=== PATIENT | female | born 1985 | race Caucasian/White ===

== ENCOUNTER 2016-11-26 15:26 | Emergency (ER) | payer OTHER ==
--- NOTE | 2016-11-26 16:43 | RAD ---
Indication: Mid lumbar spine pain post fall November 04. Comparison: No relevant prior exams available on the [facility] for comparison. Technique: AP, lateral, and oblique views lumbar sacral spine. Report: Alignment is anatomic. No cortical disruption or trabecular impaction to indicate a vertebral body fracture. Oblique views without evidence for spondylolysis. Preserved disc spaces. Unremarkable soft tissue contours. IMPRESSION: Negative exam.
[2016-11-26 17:48] VITALS: BP 118/72
[2016-11-26] MEDS ORDERED: Ketorolac INJ* 60 MG/2 ML VIAL IM ONE (17:53)
--- NOTE | 2016-11-26 18:00 | UC ---
Back Pain HPI - HPI Summary HPI Summary: 31 y/o female presents to the urgent care c/o back pain since 11/04/2016. Pt reports she slipped and fell and injured her mid back while hiking on 11/04/2016. She went to ER and then has been managed by PCP and Rx Flexeril and Naproxen which symptoms improved. However she has finished her medication. She was evaluated by PT today and her pain was exacerbated. Pain now is 7/10 constant w/ o any radiation. Denies numbness, tingling, fecal or urinary incontinence, saddle anesthesia, SOB, chest pain, N/V/D. - History of Current Complaint Hx Obtained From: Patient Hx Last Menstrual Period: Continuous pill therefore does not have regular cycle ?: No Onset/Duration: Sudden Onset, Lasting Weeks, Still Present Timing: Constant Severity Initially: Severe Severity Currently: Moderate Pain Intensity: 7 - w/ movement Pain Scale Used: 0-10 Numeric Back Pain: Is Discrete @ - Lower back pain Character: Sharp Aggravating: Movement Alleviating: Rest Associated Signs And Symptoms: Positive: Pain with Weight Bearing - Risk Factors AAA Risk Factors: Negative TAD Risk Factors: Negative Cauda Equina Risk Factors: Negative Epidural Abscess Risk Factors: Negative <Lianet Gonzales - Last Filed: 11/28/16 12:46> <Aubree Fonseca - Last Filed: 11/28/16 14:42> - History of Current Complaint Chief Complaint: UCBackPain Stated Complaint: BACK INJURY FROM FALL Time Seen by Provider: 11/26/16 17:33 - Allergies/Home Medications Allergies/Adverse Reactions: Allergies Allergy/AdvReac Type Severity Reaction Status Date / Time No Known Allergies Allergy Verified 11/26/16 15:32 Home Medications: Home Medications Bupropion XL* [Wellbutrin XL *] 300 mg PO DAILY 11/26/16 [History Confirmed ] Cyclobenzaprine TAB* [Flexeril 10 MG TAB*] 10 mg PO BID PRN 11/26/16 [History Confirmed 11/26/16] Methylphenidate TAB* [Ritalin TAB*] 10 mg PO BID 11/26/16 [History Confirmed ] PMH/Surg Hx/FS Hx/Imm Hx Previously Healthy: Yes Respiratory History: Asthma - Surgical History Surgical History: None - Family History Known Family History: Positive: Diabetes - Social History Occupation: Employed Full-time Lives: With Family Alcohol Use: Rare Substance Use Type: None Smoking Status (MU): Never Smoked Tobacco <Lianet Gonzales - Last Filed: 11/28/16 12:46> Review of Systems Constitutional: Negative Skin: Negative Eyes: Negative ENT: Negative Respiratory: Negative Cardiovascular: Negative Gastrointestinal: Negative Genitourinary: Negative Motor: Negative Neurovascular: Negative Musculoskeletal: Other: - Mid back pain Neurological: Negative Psychological: Negative All Other Systems Reviewed And Are Negative: Yes <Lianet Gonzales - Last Filed: 11/28/16 12:46> Physical Exam Triage Information Reviewed: Yes Appearance: Well-Appearing, No Pain Distress, Well-Nourished, Obese Vital Signs: Initial Vital Signs Temp 98.1 F 11/26/16 15:28 Pulse 101 11/26/16 15:28 Resp 16 11/26/16 15:28 BP 127/84 11/26/16 15:28 Pulse Ox 100 11/26/16 15:28 Vital Signs Reviewed: Yes Eye Exam: Normal Eyes: Positive: Conjunctiva Clear - PERRLA, EOMI, fundi grossly normal ENT Exam: Normal ENT: Positive: Normal ENT inspection, Hearing grossly normal, Pharynx normal, TMs normal Dental Exam: Normal Neck exam: Normal Neck: Positive: Supple, Nontender, No Lymphadenopathy Respiratory Exam: Normal Respiratory: Positive: Chest non-tender, Lungs clear, Normal breath sounds Cardiovascular Exam: Normal Cardiovascular: Positive: RRR, No Murmur, Pulses Normal, Brisk Capillary Refill Abdominal Exam: Normal Abdomen Description: Positive: Nontender, No Organomegaly, Soft. Negative: CVA Tenderness (R), CVA Tenderness (L) Bowel Sounds: Positive: Present Neurological Exam: Normal - BACK: Patient walked into the urgent care room with symmetric ambulation, No signs of limping, antalgic, able to bear weight. No signs of trauma, No masses palpated. Point tenderness at the level of T12-L1, No CVAT, no flank ecchymosis . No sacroiliac notch tenderness, No saddle anesthesia.ROM: limited flexion/ extension/ lateral bending and rotation due to pain, Straight Leg Raise: negative. Patellar reflexes: brisk, symmetric Muscle strength lower extremities. Dorsiflexion/ plantar flexion of ankles. Heel/ toe walk. Lower extremities: Femoral, popliteal, posterior tibial, and dorsalis pedis pulses WNL Psychological Exam: Normal Skin Exam: Normal <Lianet Gonzales - Last Filed: 11/28/16 12:46> Vital Signs: Initial Vital Signs Temp 98.1 F 11/26/16 15:28 Pulse 101 11/26/16 15:28 Resp 16 11/26/16 15:28 BP 127/84 11/26/16 15:28 Pulse Ox 100 11/26/16 15:28 <Aubree Fonseca - Last Filed: 11/28/16 14:42> Back Pain Course/Dx - Course Course Of Treatment: 31 y/o female presents to the urgent care c/o back pain since 11/04/2016. Pt reports she slipped and fell and injured her mid back while hiking on 11/04/2016. She went to ER and then has been managed by PCP and Rx Flexeril and Naproxen which symptoms improved. However she has finished her medication. She was evaluated by PT today and her pain was exacerbated. Pain now is 7/10 constant w/o any radiation. Denies numbness, tingling, fecal or urinary incontinence, saddle anesthesia, SOB, chest pain, N/V/D. Hx obtained. PE abnormal findings:BACK: Patient walked into the urgent care room with symmetric ambulation, No signs of limping, antalgic, able to bear weight. No signs of trauma, No masses palpated. Point tenderness at the level of T12-L1, No CVAT, no flank ecchymosis . No sacroiliac notch tenderness, No saddle anesthesia.ROM: limited flexion/ extension/ lateral bending and rotation due to pain, Straight Leg Raise: negative. Patellar reflexes: brisk, symmetric Muscle strength lower extremities. Dorsiflexion/ plantar flexion of ankles. Heel/ toe walk. Lower extremities: Femoral, popliteal, posterior tibial, and dorsalis pedis pulses WNL. Ptgiven Toradol IM inj by the nurse to allaeviate BACK: Patient walked into the urgent care room with symmetric ambulation, No signs of limping, antalgic, able to bear weight. No signs of trauma, No masses palpated. Point tenderness at the level of T12-L1, No CVAT, no flank ecchymosis . No sacroiliac notch tenderness, No saddle anesthesia.ROM: limited flexion/ extension/ lateral bending and rotation due to pain, Straight Leg Raise: negative. Patellar reflexes: brisk, symmetric Muscle strength lower extremities. Dorsiflexion/ plantar flexion of ankles. Heel/ toe walk. Lower extremities: Femoral, popliteal, posterior tibial, and dorsalis pedis pulses WNL. Lumbar spine X-ray ordered, Impression: negative. Pt D/C home with Rx of Flexeril, Medrol dose lam and Naproxen and f/u w/ PCP for further evaluation and treatment and to continue w/ PT sessions. - Differential Dx/Diagnosis Differential Diagnosis/HQI/PQRI: Cauda Equina Syndrome, Fracture, Herniated Disc , Renal Colic, Strain, Sprain Provider Diagnoses: 1-Acute back pain <Lianet Gonzales - Last Filed: 11/28/16 12:46> Discharge <Lianet Gonzales - Last Filed: 11/28/16 12:46> <Aubree Fonseca - Last Filed: 11/28/16 14:42> - Discharge Plan Condition: Stable Disposition: HOME Prescriptions: Cyclobenzaprine TAB* [Flexeril 10 MG TAB*] 10 mg PO TID PRN #21 tab PRN Reason: Spasms - Back Methylprednisolone [Medrol Dosepak 4 MG*] 4 mg PO .SEE LAM INSTRUCTION #1 lam Naproxen TAB* [Naprosyn 250 mg TAB*] 500 mg PO Q8H PRN #30 tab PRN Reason: Pain Patient Education Materials: Acute Low Back Pain (ED) Referrals: Erlinda Obrien DO [Primary Care Provider] - 2 Days Additional Instructions: Please take medications as instructed to alleviate pain. Apply ice on your mid back and rest, wear a back support and continue with the PT appointments. Please f/u with your PCP for further evaluation and treatment. Attestation Statement User Type: Provider - I was available for consult. This patient was seen by the RJ. The patient was not presented to, seen by, or examined by me. -Al <Aubree Fonseca - Last Filed: 11/28/16 14:42>
== END 2016-11-26 18:19 | disposition home or self-care (01) ==
LOC: UCEAST 15:26
DX: M54.9 Dorsalgia, unspecified (principal); J45.909 Unspecified asthma, uncomplicated; E66.9 Obesity, unspecified
CPT/HCPCS: 72110; 96372; 99212; G0463; J1885

== ENCOUNTER 2017-02-09 12:55 | Emergency (ER) | payer OTHER ==
[2017-02-09 13:26] VITALS: BP 124/67
--- NOTE | 2017-02-09 13:53 | UC ---
Abdominal Pain Female HPI - HPI Summary HPI Summary: Patient presents with complaints of one day onset abdominal pain, she states it is the upper abdomen and the pain radiates around to her back, with associated diarrhea. She states her symptoms got worse after she drank a cup of coffee yesterday and have been constant ever since. She denies any recent ravel, ill contacts, or antibiotic therapy. - History of Current Complaint Chief Complaint: UCAbdominalPain Stated Complaint: ABDOMINAL PAIN Time Seen by Provider: 02/09/17 13:37 Hx Obtained From: Patient Hx Last Menstrual Period: 01/10/17 Onset/Duration: Gradual Onset, Lasting Days Timing: Constant Severity Initially: Mild Severity Currently: Moderate Location: Diffuse, Discrete At: RUQ, Discrete At: LUQ, Epigastric Radiates to: Back, Flank Character: Sharp Aggravating Factor(s): Food Alleviating Factor(s): Nothing Associated Signs and Symptoms: Positive: Nausea, Diarrhea - Risk Factors Ectopic Risk Factor: Negative Ovarian Torsion Risk Factor: Negative Allergies/Adverse Reactions: Allergies Allergy/AdvReac Type Severity Reaction Status Date / Time No Known Allergies Allergy Verified 02/09/17 13:26 Home Medications: Home Medications Charcoal Activated [Activated Vegetable Charc] 2 tab PO ONCE PRN 02/09/17 [ History Confirmed 02/09/17] Diphenhydramine HCl 1 tab PO ONCE PRN 02/09/17 [History Confirmed 02/09/17] Fluticasone NASAL * [Flonase *] 1 spray NASAL DAILY PRN 02/09/17 [History Confirmed 02/09/17] Loratadine [Claritin 10 MG CAP] 1 tab PO DAILY 02/09/17 [History Confirmed 02/09] Naproxen TAB* [Naprosyn 250 mg TAB*] 500 mg PO Q4HR PRN 02/09/17 [History Confirmed 02/09/17] Norethindrone (Contraceptive) [Urmila] 1 tab PO DAILY 02/09/17 [History Confirmed 02/09/17] Ranitidine HCl (Nf) [Zantac] 1 tab PO DAILY PRN 02/09/17 [History Confirmed 12/19] PMH/Surg Hx/FS Hx/Imm Hx Previously Healthy: Yes - Surgical History Surgical History: None - Family History Known Family History: Positive: Diabetes - Social History Occupation: Employed Full-time Lives: Alone Alcohol Use: Rare Substance Use Type: None Smoking Status (MU): Never Smoked Tobacco - Immunization History Most Recent Influenza Vaccination: Not UTD Review of Systems Constitutional: Negative Skin: Negative Eyes: Negative ENT: Negative Respiratory: Negative Cardiovascular: Negative Gastrointestinal: Abdominal Pain, Diarrhea Genitourinary: Negative Motor: Negative Neurovascular: Negative Musculoskeletal: Negative Neurological: Negative Psychological: Negative All Other Systems Reviewed And Are Negative: Yes Physical Exam Triage Information Reviewed: Yes Appearance: Well-Appearing Vital Signs: Initial Vital Signs Temp 97.7 F 02/09/17 13:21 Pulse 70 02/09/17 13:21 Resp 18 02/09/17 13:21 BP 124/67 02/09/17 13:21 Pulse Ox 100 02/09/17 13:21 Vital Signs Reviewed: Yes Eye Exam: Normal ENT Exam: Normal Dental Exam: Normal Neck exam: Normal Neck: Positive: 1 Respiratory Exam: Normal Cardiovascular Exam: Normal Abdominal Exam: Normal Abdomen Description: Positive: Soft, Other: - RUQ/LUQ Epigastric Musculoskeletal Exam: Normal Neurological Exam: Normal Psychological Exam: Normal Skin Exam: Normal Abd Pain Female Course/Dx - Course Course Of Treatment: Patient was seen and evaluated. VSS. Nontoxic appearance. She was referred to the ER, for an abdominal pain evaluation. declined ambulance transfer. Report was called to [facility]. Patient was stable at the time of discharge. - Differential Dx/Diagnosis Differential Diagnosis: Other - abdominal pain Provider Diagnoses: abdominal pain Discharge - Discharge Plan Condition: Stable Disposition: [facility] Patient Education Materials: Abdominal Pain (ED) Referrals: Erlinda Obrien DO [Primary Care Provider] - Additional Instructions: Patient was instructed to go directly to [facility] emergency department.
== END 2017-02-09 13:50 ==
LOC: UCEAST 12:55
DX: R10.9 Unspecified abdominal pain (principal)
CPT/HCPCS: 81003; 84702; 99212; G0463

== ENCOUNTER 2017-02-09 14:15 | Emergency (ER) | payer OTHER ==
[2017-02-09] MEDS ORDERED: Ondansetron INJ* 2 MG/ML VIAL IV ONE (15:10)
[2017-02-09] MEDS ORDERED: NS 0.9% 1000 ML* 1,000 ML IV ONE (15:10)
[2017-02-09 15:48] LABS: Hematocrit 39 % (35-47); Hemoglobin 13.5 g/dl (12.0-16.0); Mean Corpuscular HGB Conc 34 g/dl (31-36); Mean Corpuscular Hemoglobin 30 pg (27-31); Mean Corpuscular Volume 88 fL (80-97); Mean Platelet Volume 7 um3 (7.4-10.4); Red Blood Count 4.48 10^6/ul (4.0-5.4); Red Cell Distribution Width 13 % (10.5-15); White Blood Count 10.3 10^3/ul (3.5-10.8)
--- NOTE | 2017-02-09 15:56 | RAD ---
HISTORY: Right upper quadrant tenderness COMPARISONS: None TECHNIQUE: Multiple transverse and longitudinal ultrasound images were obtained of the right upper quadrant of the abdomen using grayscale and color Doppler imaging. FINDINGS: LIVER: The liver is normal in shape, size, contour, and echogenicity. There are no focal parenchymal masses. There is normal hepatopedal flow of the portal vein on Doppler imaging. BILIARY TREE: There is no intrahepatic or extrahepatic biliary dilatation. The common duct measures 0.4 cm. GALLBLADDER: The gallbladder is well-visualized. There is no cholelithiasis, gallbladder wall thickening, pericholecystic fluid, or sonographic Bourne sign. PANCREAS: The head of the pancreas is unremarkable. The tail of the pancreas is not well visualized secondary to overlying bowel gas. RIGHT KIDNEY: The right kidney is normal in shape, size, contour, and echogenicity. There is no hydronephrosis or nephrolithiasis. The right kidney measures 11.8 x 5.8 x 4.7 cm. AORTA AND IVC: The aorta and IVC are unremarkable. FLUID: There are no pleural effusions. There is no free fluid within the hepatorenal recess. OTHER FINDINGS: None. IMPRESSION: NO ACUTE SONOGRAPHIC PATHOLOGY OF THE VISUALIZED PORTION OF THE ABDOMEN
[2017-02-09 16:00] LABS: Albumin 4.2 g/dL (3.2-5.2); BUN/Creatinine Ratio 12.8 (8-20); C Reactive Protein 4.16 mg/L (< 5.00); Calcium 9.6 mg/dL (8.6-10.3); EGFR African American 90.5 (>60); EGFR Non-African American 70.4 (>60); Globulin 3.2 g/dL (2-4); Potassium 3.8 mmol/L (3.5-5.0); Total Bilirubin 0.4 mg/dL (0.2-1.0); Total Protein 7.4 g/dL (6.4-8.9)
[2017-02-09] MEDS ORDERED: Lidocaine 2% VISCOUS* 15 ML UDC PO ONE (16:09)
[2017-02-09] MEDS ORDERED: Al Hydrox/Mg Hydrox/Simet LIQ* 30 ML UDC PO ONE (16:09)
[2017-02-09 16:50] VITALS: BP 127/82
== END 2017-02-09 16:47 | disposition home or self-care (01) ==
LOC: ED 14:15
DX: R10.9 Unspecified abdominal pain (principal)
CPT/HCPCS: 36415; 76705; 80053; 83605; 83690; 85025; 86140; 86618; 96374; 99283; A9270-GY; J2405

== ENCOUNTER 2017-02-17 08:27 | Emergency (ER) | payer OTHER ==
[2017-02-17] MEDS ORDERED: NS 0.9% 1000 ML* 1,000 ML IV ONE (09:36)
[2017-02-17] MEDS ORDERED: Famotidine IV* 10 MG/ML 2 ML (20 mg) IV SLOW PU ONE (09:37)
[2017-02-17] MEDS ORDERED: Al Hydrox/Mg Hydrox/Simet LIQ* 30 ML UDC PO ONE (10:14)
[2017-02-17] MEDS ORDERED: Lidocaine 2% VISCOUS* 15 ML UDC PO ONE (10:15)
[2017-02-17 11:07] VITALS: BP 130/65
--- NOTE | 2017-02-17 11:53 | RAD ---
CLINICAL HISTORY: 9 days of abdominal pain COMPARISON: None TECHNIQUE: Noncontrast CT examination of the abdomen and pelvis from the lung bases through the initial tuberosities. FINDINGS: VISUALIZED LUNG BASES: The visualized lung bases are grossly clear. There is no pleural effusion. ABDOMEN AND PELVIS: Evaluation of the solid organs and vasculature is limited without intravenous contrast. The liver, spleen, pancreas and adrenal glands are grossly normal in appearance. The gallbladder is normal. The kidneys are normal in appearance without focal mass, calcification or signs of hydronephrosis. Evaluation of the gastrointestinal tract is limited without oral contrast. The small and large bowel are not distended. The appendix is top normal diameter measuring just under 8 mm in width (coronal image 70). There is a focus of gas in the lumen and no definite periappendiceal inflammatory changes. There is potentially wall thickening involving the transverse colon measuring up to 9 mm in thickness (axial image 39). There is no gross retroperitoneal lymphadenopathy. There are innumerable mesenteric lymph nodes but none are pathologically dilated. In the left adnexa there is a 3.6 cm fluid density structure. The abdominal aorta and iliac arteries are normal in course and diameter. There are no sinister bone lesions. IMPRESSION: 1. Evaluation of the gastrointestinal tract is limited without oral contrast. There is questionable wall thickening involving the transverse colon in the presence of innumerable mesenteric lymph nodes, none of which are pathologically dilated. Please correlate to infectious or inflammatory colitis. 2. Fluid density structure in the left adnexa is most consistent with a dominant follicle in a woman of this age.
--- NOTE | 2017-02-17 12:23 | UC ---
Abdominal Pain Female HPI - HPI Summary HPI Summary: Patient presents to the clinic with persistent complaints of abdominal pain, nausea, vomiting, and diarrhea x 9 days. She states she was seen at the ER at [facility] 8 days ago, had blood work, and a gallbladder US and was discharged home. She thought she was getting better so she started to ear again yesterday. Last night she ate pasta and milk and once again her symptoms got much worse again. Last night she vomited four times, and has so many episodes of diarrhea she couldn't count them. She also reports that in general she does not feel well, she has muscle and joint pain, she states she feels like everything is "inflammed". She states that if her stomach isn't hurting everything else hurts. She denies any recent travel, ill contacts, fever, chills, chest pain, sob, cough, dysuria, hemturia or abnormal vaginal discharge or bleeding. - History of Current Complaint Chief Complaint: UCAbdominalPain Stated Complaint: ABDOMINAL PAIN, AND VOMITING Time Seen by Provider: 02/17/17 09:27 Hx Obtained From: Patient Hx Last Menstrual Period: 02/16/17 ?: No Onset/Duration: Gradual Onset, Lasting Days Timing: Constant Severity Initially: Moderate Severity Currently: Moderate Location: Diffuse - through the mid-abdominal region Radiates: No Character: Cramping, Sharp Aggravating Factor(s): Food Alleviating Factor(s): Vomiting Associated Signs and Symptoms: Positive: Nausea, Vomiting, Diarrhea Allergies/Adverse Reactions: Allergies Allergy/AdvReac Type Severity Reaction Status Date / Time No Known Allergies Allergy Verified 02/17/17 08:42 PMH/Surg Hx/FS Hx/Imm Hx Previously Healthy: Yes - Surgical History Surgical History: None - Family History Known Family History: Positive: Diabetes - Social History Occupation: Employed Full-time Lives: Alone Alcohol Use: Rare Substance Use Type: None Smoking Status (MU): Never Smoked Tobacco - Immunization History Most Recent Influenza Vaccination: Not UTD Review of Systems Constitutional: Negative Skin: Negative Eyes: Negative ENT: Negative Respiratory: Negative Cardiovascular: Negative Gastrointestinal: Abdominal Pain, Vomiting, Diarrhea, Nausea, Other - intolerance to food or drinks, cannot eat. Genitourinary: Negative Motor: Negative Neurovascular: Negative Musculoskeletal: Negative All Other Systems Reviewed And Are Negative: Yes Physical Exam Triage Information Reviewed: Yes Appearance: Ill-Appearing Vital Signs: Initial Vital Signs Temp 98.5 F 02/17/17 08:43 Pulse 85 02/17/17 08:43 Resp 16 02/17/17 08:43 BP 129/67 02/17/17 08:43 Pulse Ox 100 02/17/17 08:43 Vital Signs Reviewed: Yes Eye Exam: Normal ENT Exam: Normal Neck exam: Normal Respiratory Exam: Normal Cardiovascular Exam: Normal Abdomen Description: Positive: Other: - bowel sounds hypoactive x 4 quadrants, mild distension, tenderness on palpation through the mid-abominal region, without rebound, guarding, HSM, or CVAT. Skin Exam: Normal Abd Pain Female Course/Dx - Course Course Of Treatment: Patient presents with complaints of 8 days, abdominal pain , n/v/d. Ct abdomen and pelvis without contrast revealed transverse 9 mm colon wall thickening consistent with inflammatory or infectious processes, appendix dialated 8mm with no obvious periappendiceal inflammatory changes. She was given IV fluids, and reglan and no improvement. Stool cultures were obtained and are pending. She continues to be symptomatic and options were discussed I felt she should go to the ER for further testing and resusitation. - Differential Dx/Diagnosis Differential Diagnosis: Other - abdominal pain vomiting nausea diarrhea Provider Diagnoses: abdominal pain. vomiting. nausea. diarrrhea Discharge - Discharge Plan Condition: Stable Disposition: HOME Patient Education Materials: Acute Nausea and Vomiting (ED), Acute Diarrhea (ED ), Abdominal Pain (ED) Referrals: Colton Hall MD [Medical Doctor] - Erlinda Obrien DO [Primary Care Provider] - Additional Instructions: Go directly to the ER from here.
--- NOTE | 2017-02-18 15:46 | UC ---
Progress - Progress Note Progress Note: (-) SHIGA/C.DIFF.
--- NOTE | 2017-02-19 17:51 | ED ---
Progress - Progress Note Progress Note: (-) SHIGA/C.DIFF. 02/19/17 (-) SHIGA/CDIFF Course/Dx - Course Course Of Treatment: Patient presents with complaints of 8 days, abdominal pain , n/v/d. Ct abdomen and pelvis without contrast revealed transverse 9 mm colon wall thickening consistent with inflammatory or infectious processes, appendix dialated 8mm with no obvious periappendiceal inflammatory changes. She was given IV fluids, and reglan and no improvement. Stool cultures were obtained and are pending. She continues to be symptomatic and options were discussed I felt she should go to the ER for further testing and resusitation. - Diagnoses Provider Diagnoses: Diarrhea
== END 2017-02-17 12:30 | disposition home or self-care (01) ==
LOC: UCEAST 08:27
DX: R10.9 Unspecified abdominal pain (principal); R19.7 Diarrhea, unspecified; R11.2 Nausea with vomiting, unspecified
CPT/HCPCS: 74176; 81003; 84702; 87045; 87046; 87077; 87493; 87899; 96361; 96374; 99212; A9270-GY; G0463

== ENCOUNTER 2017-02-17 12:54 | Emergency (ER) | payer OTHER ==
[2017-02-17] MEDS ORDERED: Morphine INJ* 4 MG/ML 1 ML CARPUJECT IV ONE (15:57)
[2017-02-17] MEDS ORDERED: Ondansetron INJ* 2 MG/ML VIAL IV ONE (15:57)
[2017-02-17 16:40] LABS: Hematocrit 40 % (35-47); Hemoglobin 13.3 g/dl (12.0-16.0); Mean Corpuscular HGB Conc 34 g/dl (31-36); Mean Corpuscular Hemoglobin 30 pg (27-31); Mean Corpuscular Volume 89 fL (80-97); Mean Platelet Volume 7 um3 (7.4-10.4); Red Blood Count 4.47 10^6/ul (4.0-5.4); Red Cell Distribution Width 13 % (10.5-15); White Blood Count 12.2 10^3/ul (3.5-10.8)
[2017-02-17 17:04] LABS: Albumin 3.9 g/dL (3.2-5.2); BUN/Creatinine Ratio 5.8 (8-20); C Reactive Protein 4.92 mg/L (< 5.00); Calcium 9.2 mg/dL (8.6-10.3); EGFR African American 81.5 (>60); EGFR Non-African American 63.4 (>60); Globulin 3.2 g/dL (2-4); Magnesium 1.9 mg/dL (1.9-2.7); Potassium 3.6 mmol/L (3.5-5.0); Total Bilirubin 0.5 mg/dL (0.2-1.0); Total Protein 7.1 g/dL (6.4-8.9)
[2017-02-17] MEDS ORDERED: Iohexol 300* (CONTRAST) 10 ML SDV IV ONE (17:14)
--- NOTE | 2017-02-17 18:41 | RAD ---
Indication: Abdominal pain, colitis. Contrast: Administered 150.2 ml of OMNIPAQUE 300 mg/ml CT of the abdomen and pelvis was performed after oral or IV contrast administration. Coronal and sagittal reconstructed images were obtained. The lung bases demonstrate no pleural fluid, nodules or masses. Heart is of normal size without evidence of pericardial effusion. Liver is normal in size. No focal lesions or intrahepatic ductal dilatation is noted. The gallbladder demonstrates no calcified gallstones. No pericholecystic fluid or wall thickening is noted. The spleen is normal in size. The pancreas indicates no mass or pancreatic ductal dilatation. The common duct is not dilated. No adrenal lesions are noted. The kidneys demonstrate symmetric nephrograms without hydronephrosis in either kidney. No dilated loops of bowel are noted. The colon is filled with stool. CT of the pelvis demonstrates normal appendix. No dilated loops of bowel are noted. No focal wall thickening of the colon is noted. No free fluid is identified. The previously described wall thickening of the transverse colon is no longer present and may have been function of lack of oral contrast. There were multiple mesenteric lymph nodes noted. This is in the mesentery. These are nonspecific and are not enlarged.. There is suggestion of a left ovarian cyst measuring up to 4.8 cm for which follow-up is suggested. No hernias are noted. IMPRESSION: Left ovarian cyst measuring up to 4.8 cm. No free fluid is identified. No mucosal thickening of the colon is noted. No other masses or fluid collections are noted. Previously identified thickened mucosa of the colon likely due to nondistention. It is not present on current exam.
--- NOTE | 2017-02-17 19:24 | ED ---
Abdominal Pain/Female - HPI Summary HPI Summary: Patient presents from [facility] with mid abdominal pain x [address] without contrast performed at [facility] and showed possible colitis. She was sent here for further evaluation. She states she feels she is not emptying her stomach. She feels only OK when drinking water and if she stops drinking water, she feels midepigastric to umbilical pain. Food makes the pain worse. She has tried to only have a bland diet, and still not improving her symptoms. She notes to intermittent nausea with 1x vomit. Denies C/D. Denies fevers, sweats and chills. She denies chance of . Denies vaginal bleeding, but states she switched her control over a few months ago and so has had some intermittent spotting. - History of Current Complaint Chief Complaint: EDAbdPain Stated Complaint: ABD PAIN Time Seen by Provider: 02/17/17 15:03 Hx Obtained From: Patient Hx Last Menstrual Period: 02/16/17 ?: No Onset/Duration: Sudden Onset Timing: Constant Severity Initially: Moderate Severity Currently: Moderate Pain Intensity: 8 Pain Scale Used: 0-10 Numeric Location: Diffuse Radiates: No Character: Cramping Aggravating Factor(s): Food Alleviating Factor(s): Position Associated Signs and Symptoms: Positive: Nausea, Vomiting - Risk Factors Ectopic Risk Factor: Negative Ovarian Torsion Risk Factor: Reproductive Age Allergies/Adverse Reactions: Allergies Allergy/AdvReac Type Severity Reaction Status Date / Time No Known Allergies Allergy Verified 02/17/17 12:58 PMH/Surg Hx/FS Hx/Imm Hx Previously Healthy: Yes Endocrine/Hematology History: Denies: Hx Diabetes Cardiovascular History: Denies: Hx Hypertension Respiratory History: Reports: Hx Asthma - stress induced Denies: Hx Chronic Obstructive Pulmonary Disease (COPD) History: Denies: Hx Renal Disease - Immunization History Date of Tetanus Vaccine: 2016 Date of Influenza Vaccine: never Hx Pertussis Vaccination: No Immunizations Up to Date: Unable to Obtain/Confirm Infectious Disease History: No Infectious Disease History: Denies: Hx Hepatitis, Traveled Outside the [place] in Last 30 Days - Family History Known Family History: Positive: Diabetes - Social History Occupation: Employed Part-time Lives: With Family Alcohol Use: Rare Hx Substance Use: No Substance Use Type: Reports: None Hx Tobacco Use: No Smoking Status (MU): Never Smoked Tobacco Review of Systems Constitutional: Negative Eyes: Negative Respiratory: Negative Positive: Abdominal Pain, Vomiting, Nausea Genitourinary: Negative Positive: no symptoms reported, see HPI Musculoskeletal: Negative Neurological: Negative Psychological: Normal All Other Systems Reviewed And Are Negative: Yes Physical Exam Triage Information Reviewed: Yes Vital Signs On Initial Exam: Initial Vitals Temp Pulse Resp BP Pulse Ox 96.9 F 86 16 150/88 100 02/17/17 12:56 02/17/17 12:56 02/17/17 12:56 02/17/17 12:56 02/17/17 12:56 Vital Signs Reviewed: Yes Appearance: Positive: Well-Appearing, Well-Nourished Skin: Positive: Warm, Skin Color Reflects Adequate Perfusion Head/Face: Positive: Normal Head/Face Inspection Eyes: Positive: EOMI, TONY, Conjunctiva Clear Neck: Positive: Supple, No Lymphadenopathy Respiratory/Lung Sounds: Positive: Clear to Auscultation, Breath Sounds Present Abdomen Description: Positive: Other: - tenderness to the RLQ and epigastric pain. Diffusely tender on exam Musculoskeletal: Positive: Normal, Strength/ROM Intact Neurological: Positive: Speech Normal Psychiatric: Positive: Normal AVPU Assessment: Alert Diagnostics - Vital Signs Vital Signs Temp Pulse Resp BP Pulse Ox 02/17/17 16:07 14 02/17/17 12:56 96.9 F 86 16 150/88 100 - Laboratory Lab Results: Lab Results 02/17/17 02/17/17 02/17/17 Range/Units 16:31 16:31 16:31 WBC 12.2 H (3.5-10.8) 10^3/ul RBC 4.47 (4.0-5.4) 10^6/ul Hgb 13.3 (12.0-16.0) g/dl Hct 40 (35-47) % MCV 89 (80-97) fL MCH 30 (27-31) pg MCHC 34 (31-36) g/dl RDW 13 (10.5-15) % Plt Count 357 (150-450) 10^3/ul MPV 7 L (7.4-10.4) um3 Neut % (Auto) 58.0 (38-83) % Lymph % (Auto) 22.5 L (25-47) % [place] % (Auto) 6.7 (1-9) % Eos % (Auto) 12.0 H (0-6) % Baso % (Auto) 0.8 (0-2) % Absolute Neuts (auto) 7.1 (1.5-7.7) 10^3/ul Absolute Lymphs (auto) 2.8 (1.0-4.8) 10^3/ul Absolute Monos (auto) 0.8 (0-0.8) 10^3/ul Absolute Eos (auto) 1.5 H (0-0.6) 10^3/ul Absolute Basos (auto) 0.1 (0-0.2) 10^3/ul Absolute Nucleated RBC 0 10^3/ul Nucleated RBC % 0 Sodium 138 (133-145) mmol/L Potassium 3.6 (3.5-5.0) mmol/L Chloride 107 (101-111) mmol/L Carbon Dioxide 24 (22-32) mmol/L Anion Gap 7 (2-11) mmol/L BUN 6 (6-24) mg/dL Creatinine 1.03 H (0.51-0.95) mg/dL Est GFR ( Amer) 81.5 (>60) Est GFR (Non-Af Amer) 63.4 (>60) BUN/Creatinine Ratio 5.8 L (8-20) Glucose 88 (70-100) mg/dL Lactic Acid 0.8 (0.5-2.0) mmol/L Calcium 9.2 (8.6-10.3) mg/dL Magnesium 1.9 (1.9-2.7) mg/dL Total Bilirubin 0.50 (0.2-1.0) mg/dL AST 13 (13-39) U/L ALT 14 (7-52) U/L Alkaline Phosphatase 66 (34-104) U/L Total Creatine Kinase 73 (10-223) U/L C-Reactive Protein 4.92 (< 5.00) mg/L Total Protein 7.1 (6.4-8.9) g/dL Albumin 3.9 (3.2-5.2) g/dL Globulin 3.2 (2-4) g/dL Albumin/Globulin Ratio 1.2 (1-3) Lipase 20 (11.0-82.0) U/L Result Diagrams: 02/17/17 16:31 02/17/17 16:31 Lab Statement: Any lab studies that have been ordered have been reviewed, and results considered in the medical decision making process. Abdominal Pain Fem Course/Dx - Course Course Of Treatment: Patient presents from [facility] with CC of abdominal pain. CT performed without contrast which shows possible colitis. CT abd/pelvis performed with contrast in the ED after risks and benefits explained to patient. She is given zofran and morphine with some relief. CT shows no acute abnormalities and does not show the colitis. She is given a GI referral as she feels she is unable to completely digest her food. She is OK with referral and follow up and voices no concerns at this time. - Diagnoses Differential Diagnosis: Positive: Bowel Obstruction, Constipation, Diverticulitis Provider Diagnoses: Abdominal pain Discharge - Discharge Plan Condition: Stable Disposition: HOME Prescriptions: Omeprazole CAP* [Prilosec CAP* 20 MG] 20 mg PO DAILY #30 cap. Ondansetron ODT TAB* [Zofran 4 MG Odt TAB*] 4 mg PO Q6H PRN #12 tab.odt MDD 4 PRN Reason: Nausea Patient Education Materials: Ovarian Cyst (ED), Epigastric Pain (ED) Forms: *Work Release Referrals: Erlinda Obrien DO [Primary Care Provider] - Additional Instructions: If symptoms persist, try a anti-constipation agent such as miralax or senna for constipation. Omeprazole daily Zofran as needed for nausea
[2017-02-17 19:36] VITALS: BP 114/69
== END 2017-02-17 19:40 | disposition home or self-care (01) ==
LOC: ED 12:54
DX: R10.13 Epigastric pain (principal); R10.31 Right lower quadrant pain; R11.2 Nausea with vomiting, unspecified; J45.909 Unspecified asthma, uncomplicated
CPT/HCPCS: 36415; 74177; 80053; 82550; 83605; 83690; 83735; 85025; 86140; 96374; 96375; 99282; J2270; J2405; Q9967

== ENCOUNTER 2018-08-08 08:38 | Emergency (ER) | payer OTHER ==
[2018-08-08 08:49] VITALS: BP 134/66
--- NOTE | 2018-08-08 09:03 | UC ---
Back Pain HPI - HPI Summary HPI Summary: 33-year-old woman comes in with a chief complaint of low back pain. This started 3 days ago. It's in the lower lumbar region. Occasionally the pains at its worse it does radiate into the left buttock. No weakness or numbness. No difficulty controlling urine or bowels. No specific injury. No abdominal pain. Patient had a mobic pill left over from a prior prescription which did help. Patient has no more mobic. Pain is worse with twisting turning bending. Patient's also been doing very stretch is what overall do help. - History of Current Complaint Chief Complaint: UCBackPain Stated Complaint: BACK PAIN Time Seen by Provider: 08/08/18 08:43 Hx Last Menstrual Period: 07/22/18 Pain Intensity: 6 - Allergies/Home Medications Allergies/Adverse Reactions: Allergies Allergy/AdvReac Type Severity Reaction Status Date / Time Iodinated Contrast- Oral and Allergy Difficulty Verified 08/08/18 08:45 IV Dye Breathing pecan nut Allergy See Comment Verified 08/08/18 08:46 PMH/Surg Hx/FS Hx/Imm Hx Previously Healthy: Yes - Surgical History Surgical History: None - Family History Known Family History: Positive: Diabetes - Social History Alcohol Use: Occasionally Substance Use Type: None Smoking Status (MU): Never Smoked Tobacco - Immunization History Most Recent Influenza Vaccination: Not UTD Review of Systems All Other Systems Reviewed And Are Negative: Yes Constitutional: Positive: Negative Skin: Positive: Negative Eyes: Positive: Negative ENT: Positive: Negative Respiratory: Positive: Negative Cardiovascular: Positive: Negative Gastrointestinal: Positive: Negative Genitourinary: Positive: Negative Motor: Positive: Negative Neurovascular: Positive: Negative Musculoskeletal: Positive: Other: - see hpi Neurological: Positive: Negative Psychological: Positive: Negative Is Patient Immunocompromised?: No Physical Exam Triage Information Reviewed: Yes Appearance: Well-Appearing, Well-Nourished, Pain Distress - mild with rom Vital Signs: Initial Vital Signs Temp 98.3 F 08/08/18 08:43 Pulse 89 08/08/18 08:43 Resp 16 08/08/18 08:43 BP 134/66 08/08/18 08:43 Pulse Ox 100 08/08/18 08:43 Vital Signs Reviewed: Yes Eye Exam: Normal Eyes: Positive: Conjunctiva Clear Neck exam: Normal Neck: Positive: Supple Respiratory: Positive: Lungs clear, Normal breath sounds, No respiratory distress Cardiovascular: Positive: RRR Musculoskeletal: Positive: Strength Intact, ROM Intact, Other: - Tender to palpation lower lumbar. LE: strength and rom normal. Neurological Exam: Normal Neurological: Positive: Alert, Muscle Tone Normal Psychological Exam: Normal Psychological: Positive: Age Appropriate Behavior Skin Exam: Normal Back Pain Course/Dx - Differential Dx/Diagnosis Provider Diagnosis: Low back pain Discharge - Sign-Out/Discharge Documenting (check all that apply): Patient Departure All imaging exams completed and their final reports reviewed: No Studies - Discharge Plan Condition: Stable Disposition: HOME Prescriptions: Meloxicam 7.5 mg PO BID PRN #30 tablet PRN Reason: Pain Patient Education Materials: Low Back Strain (ED), Lower Back Exercises (ED) Referrals: Erlinda Obrien DO [Primary Care Provider] - [facility]FERR[facility] [Outside] Additional Instructions: FOLLOW UP WITH YOUR DOCTOR IF NOT COMPLETELY IMPROVED. GET REEVALUATED SOONER FOR ANY WORSENING OF YOUR CONDITION; WEAKNESS, NUMBNESS, DIFFICULTY CONTROLLING BOWEL OR BLADDER OR ANY QUESTIONS OR CONCERNS. - Billing Disposition and Condition Condition: STABLE Disposition: Home
== END 2018-08-08 09:05 | disposition home or self-care (01) ==
LOC: UCEAST 08:38
DX: M54.5 Low back pain (principal); Z91.041 Radiographic dye allergy status; Z91.018 Allergy to other foods
CPT/HCPCS: 99212; G0463

== ENCOUNTER 2018-08-24 11:13 | Emergency (ER) | payer OTHER ==
[2018-08-24 11:42] VITALS: BP 122/73
--- NOTE | 2018-08-24 13:34 | UC ---
Back Pain HPI - HPI Summary HPI Summary: 33 year old female with h/o back pain x several months, worse snce August. Was seen by primary on Friday, prescribed physical therapy. pain was better then, but has worsened over past several days to where pain with lying down, leaning forward. No longer has mobic for pain, has used muscle relaxer in past, but not helped by flexeril. no imaging. no trauma. - History of Current Complaint Chief Complaint: UCBackPain Stated Complaint: BACK PAIN Time Seen by Provider: 08/24/18 13:22 Hx Obtained From: Patient Hx Last Menstrual Period: 08/17/18 ?: No Onset/Duration: Gradual Onset, Lasting Weeks Timing: Constant Severity Initially: Moderate Severity Currently: Moderate Pain Intensity: 6 Pain Scale Used: 0-10 Numeric Back Pain: Is Discrete @ - thoracic/ lumbar spine Character: Sharp, Aching, Throbbing Aggravating Factor(s): Lifting, Bending Alleviating Factor(s): Rest, Position - Allergies/Home Medications Allergies/Adverse Reactions: Allergies Allergy/AdvReac Type Severity Reaction Status Date / Time Iodinated Contrast- Oral and Allergy Difficulty Verified 08/24/18 11:42 IV Dye Breathing pecan nut Allergy See Comment Verified 08/24/18 11:42 PMH/Surg Hx/FS Hx/Imm Hx Previously Healthy: Yes - h/o back pain x mnths - Surgical History Surgical History: None - Family History Known Family History: Positive: Diabetes - Social History Alcohol Use: Occasionally Substance Use Type: None Smoking Status (MU): Never Smoked Tobacco - Immunization History Most Recent Influenza Vaccination: Not UTD Review of Systems All Other Systems Reviewed And Are Negative: Yes Motor: Positive: Decreased ROM Musculoskeletal: Positive: Arthralgia, Myalgia Is Patient Immunocompromised?: No Physical Exam Triage Information Reviewed: Yes Appearance: Well-Appearing, No Pain Distress, Well-Nourished Vital Signs: Initial Vital Signs Temp 98.4 F 08/24/18 11:40 Pulse 72 08/24/18 11:40 Resp 18 08/24/18 11:40 BP 122/73 08/24/18 11:40 Pulse Ox 100 08/24/18 11:40 Vital Signs Reviewed: Yes Eyes: Positive: Conjunctiva Clear Musculoskeletal: Positive: Strength Intact, ROM Intact, No Edema Neurological: Positive: Alert, Muscle Tone Normal Psychological Exam: Normal Back Pain Course/Dx - Course Course Of Treatment: radiograph - negative for fx. - Differential Dx/Diagnosis Differential Diagnosis/HQI/PQRI: Herniated Disc, Strain, Sprain Provider Diagnosis: Lumbago Discharge - Sign-Out/Discharge Documenting (check all that apply): Patient Departure All imaging exams completed and their final reports reviewed: Yes - Discharge Plan Condition: Good Disposition: HOME Prescriptions: Baclofen TAB* [Lioresal TAB*] 20 mg PO TID PRN #30 tab PRN Reason: muscle spasms Meloxicam 7.5 mg PO BID PRN #15 tablet PRN Reason: Pain predniSONE [Prednisone 20 MG TAB] 20 mg PO SEE INSTRUCTIONS #22 tablet Patient Education Materials: Low Back Strain (ED), Lower Back Exercises (ED) Referrals: Trinity Giang MD [Primary Care Provider] - Additional Instructions: - Follow up with primary for possible increased testing - Continue physical therapy -steroids x 10 days to decrease inflammation - Tylenol as needed for pain - muscle relaxer prescribed - Meloxicam prescribed, do not take while taking steroids - Billing Disposition and Condition Condition: GOOD Disposition: Home
== END 2018-08-24 14:40 | disposition home or self-care (01) ==
LOC: UCEAST 11:13
DX: M54.5 Low back pain (principal); Z91.041 Radiographic dye allergy status; Z91.018 Allergy to other foods
CPT/HCPCS: 72080; 99212; G0463

== ENCOUNTER 2018-10-20 16:32 | Emergency (ER) | payer OTHER ==
[2018-10-20 16:47] VITALS: BP 137/87
--- NOTE | 2018-10-20 17:19 | UC ---
Eye Complaint HPI - HPI Summary HPI Summary: 33 y/o female presents to the urgent care c/o bilateral eyes irritation, red w / clear drainage s/p cleaning her face w/ 2 different organic base face wash and some got into her eyes accidentally. She washed her eye w/ a lot of water and removed her contact lenses immediately. This morning when she woke up her both eye were mildly red w/ a lot itchiness. She has been rubbing her eye a lot. Irritation is 4/10 w/o any photophobia, visual changes or disturbances, no purulent discharge, fever, HUNT, dizziness, chest pain, abdominal pain, N/V/D. - History of Current Complaint Chief Complaint: UCEye Stated Complaint: EYE PAIN Time Seen by Provider: 10/20/18 17:08 Hx Obtained From: Patient Hx Last Menstrual Period: 10/11/18 ?: No Onset/Duration: Sudden Onset, Lasting Days - 1 day, Still Present, Worse Since - this morning w/ B/L eye irritation and red eyes Timing: Days - 1 day Severity Initially: Mild Severity Currently: Mild Pain Intensity: 4 - B/L eye irritation Pain Scale Used: 0-10 Numeric Location of Injury: Conjunctiva - B/L red eyes Character: Dull Aggravating Factor(s): Contact Lens - she removed them inmediately, Blinking Alleviating Factor(s): Nothing Associated Signs And Symptoms: Positive: Drainage (Clear). Negative: Photophobia, Vision Impairment Bilateral, Swelling - Risk Factors Penetrating Injury Risk Factor: Negative Globe Rupture Risk Factors: Negative Acute Glaucoma Risk Factors: Negative Optic Artery Occlusion Risk Factors: Negative - Allergies/Home Medications Allergies/Adverse Reactions: Allergies Allergy/AdvReac Type Severity Reaction Status Date / Time Iodinated Contrast- Oral and Allergy Difficulty Verified 10/20/18 16:47 IV Dye Breathing pecan nut Allergy See Comment Verified 10/20/18 16:47 PMH/Surg Hx/FS Hx/Imm Hx Previously Healthy: Yes Respiratory History: Asthma Other Respiratory History: seasonal allergies - Surgical History Surgical History: None - Family History Known Family History: Positive: Hypertension, Diabetes Family History: Dyslipidemia - Social History Occupation: Employed Full-time Lives: With Family Alcohol Use: Occasionally Substance Use Type: None Smoking Status (MU): Never Smoked Tobacco - Immunization History Most Recent Influenza Vaccination: Not UTD Review of Systems All Other Systems Reviewed And Are Negative: Yes Constitutional: Positive: Negative Skin: Positive: Negative Eyes: Positive: Drainage - clear, Eye Redness - b/L eye red conjuntiva. Negative: Blurred Vision, Diplopia, Photophobia ENT: Positive: Negative Respiratory: Positive: Negative Cardiovascular: Positive: Negative Gastrointestinal: Positive: Negative Genitourinary: Positive: Negative Motor: Positive: Negative Neurovascular: Positive: Negative Musculoskeletal: Positive: Negative Neurological: Positive: Negative Psychological: Positive: Negative Is Patient Immunocompromised?: No Physical Exam - Summary Physical Exam Summary: Vital Signs Reviewed: Yes General: Well appearing, well nourished adolescent obese female in no apparent pain distress Eyes: Positive: B/L Conjunctiva mildly Inflamed - Visual acuity: WNL,Visual collins: full to confrontation. PERRLA, EOMI intact w/out limitation or complaint of pain. eyelashes clear. mild tearing observed. No ciliary flush. No chemosis, No photophobia. Normal fundoscopic exam; no proptosis, exophthalmos, nystagmus. Visual acuity is 20/20 bilaterally, and visual collins are within normal limits. No foreign body under eyelids observed with naked eye. ENT: Positive: Normal ENT inspection, Hearing grossly normal, Pharynx normal, Nasal congestion, Nasal drainage - clear, TMs normal - B/L external ear canal clear , TM's WNL. Negative: Tonsillar swelling, Tonsillar exudate Neck: Positive: Supple, Nontender, No Lymphadenopathy Respiratory: Positive: Chest nontender, Lungs clear, Normal breath sounds, No respiratory distress Cardiovascular: Positive: RRR, No Murmur, Pulses Normal, Brisk Capillary Refill Abdomen Description: Positive: Nontender, No Organomegaly, Soft. Negative: CVA Tenderness (R), CVA Tenderness (L) Bowel Sounds: Positive: Present Musculoskeletal: Positive: Strength Intact, ROM Intact, No Edema Neurological Exam: Normal Psychological Exam: Normal Skin Exam: Normal Triage Information Reviewed: Yes Vital Signs: Initial Vital Signs Temp 98.4 F 10/20/18 16:43 Pulse 71 10/20/18 16:43 Resp 18 10/20/18 16:43 BP 137/87 10/20/18 16:43 Pulse Ox 99 10/20/18 16:43 Eye Complaint Course/Dx - Course Course Of Treatment: 33 y/o female presents to the urgent care c/o bilateral eyes irritation, red w / clear drainage s/p cleaning her face w/ 2 different organic base face wash and some got into her eyes accidentally. She washed her eye w/ a lot of water and removed her contact lenses immediately. This morning when she woke up her both eye were mildly red w/ a lot itchiness. She has been rubbing her eye a lot. Irritation is 4/10 w/o any photophobia, visual changes or disturbances, no purulent discharge, fever, HUNT, dizziness, chest pain, abdominal pain, N/V/D. Hx obtained. Pt w/ possible allergic conjunctivitis on examination. [facility] ePt has been scratching her eyes and she has mascara there may be possibility of a corneal abrasion. Mascara removed w/ Saline water. Then 2 drops of Tetracaine optha drops placed on Pts eyes to alleviate symptoms or irritation, then irrigated with saline drops to flush any foreign particles, then fluorescein instillation and examination with a UV lamp. No corneal abrasion observed. No foreign body identified. After procedure Pt felt better. Pt Rx Patanol ophthalmic drops to alleviate symptoms. Pt Advised to f/u w/ Opthlamologist DR Davenport if symptoms do not improve or worsen.Advised no to wear her contacts or use mascara until symptoms resolve. D/c instructions explained. Pt understood and agreed w/ plan of care. - Differential Dx/Diagnosis Differential Diagnosis/HQI/PQRI: Conjunctivitis, Corneal Abrasion, Foreign Body , Periorbital Cellulitis, Orbital Cellulitis, Uveitis, Other Provider Diagnosis: Conjunctivitis, acute, bilateral Discharge - Sign-Out/Discharge Documenting (check all that apply): Patient Departure - d/C home All imaging exams completed and their final reports reviewed: No Studies - Discharge Plan Condition: Stable Disposition: HOME Prescriptions: Olopatadine 0.1% OPHTH (NF) [Patanol 0.1% OPHTH (NF)] 1 drop BOTH EYES BID #1 btl Patient Education Materials: Conjunctivitis (ED) Referrals: Trinity Giang MD [Primary Care Provider] - 2 Days Richar Davenport MD [Medical Doctor] - 2 Days Additional Instructions: 1-Please apply ophthalmic drops as instructed to alleviate symptoms. Please do no wear your contact lenses or any mascara until symptoms resolve 2-If you do not improve or if symptoms worsen please f/u with materials research engineer DR Davenport in 2-3 days for further evaluation and treatment. If severe eye pain develops or worsening symptoms please go immediately to the ER for further management - Billing Disposition and Condition Condition: STABLE Disposition: Home - Attestation Statements Provider Attestation: I was available for consult. This patient was seen by the RJ. The patient was not presented to, seen by, or examined by me. -Al
[2018-10-20] MEDS ORDERED: Fluorescein Sodium TOPICAL* 1 MG TEST STRIP OPHTHALMIC ONE (17:34)
[2018-10-20] MEDS ORDERED: Tetracaine 0.5% OPTH.SOL 4 ML* 1 DROP BTL BOTH EYES ONE (17:34)
[2018-10-20] MEDS ORDERED: Eye Irrigation Solution 30 ML BOTTLE BOTH EYES ONE (17:34)
== END 2018-10-20 18:15 | disposition home or self-care (01) ==
LOC: UCEAST 16:32
DX: H10.33 Unspecified acute conjunctivitis, bilateral (principal)
CPT/HCPCS: 99212; A9270-GY; G0463